=== PATIENT | female | born 1965 | race Caucasian/White ===

== ENCOUNTER 2017-08-13 13:13 | Emergency (ER) | payer OTHER, BC ==
[~2017-08-13] VITALS: Ht 172.7 cm; Wt 70.7 kg
[~2017-08-13 13:13] MED LIST: CALCIUM + VITA1 EACH PO; FISH OIL; HAIR, SKIN & N1 EAC1 PO; MASOPHEN325 MG PO; MOBIC7.5 MG PO; MULTIVITAMIN1 EAC2 PO; PROTONIX40 MG PO; TOPAMAX100 MG PO; XANAX
[2017-08-13 13:57] LABS: BASOPHIL (%) 0.3 % (0-1); EOSINOPHIL (%) 0.1 % (0-5); HEMATOCRIT 41.5 % (36.0-46.0); HEMOGLOBIN 14.3 G/DL (11.9-15.5); IMMATURE GRANULOCYTE (%) 0.1 % (0.0-0.7); LYMPHOCYTE (%) 19.7 % (15-42); LYMPHOCYTE COUNT 1.5 K/uL (1.0-2.8); MCHC 34.5 G/DL (30.0-36.0); MCV 95.8 FL (83-99); MONOCYTE (%) 6.3 % (3-12); MONOCYTE COUNT 0.5 K/uL (0-0.8); NEUTROPHIL (%) 73.5 % (45-76); NEUTROPHIL COUNT 5.4 K/uL (1.8-6.4); PLATELET COUNT 208 K/uL (156-360); RBC DIS.WIDTH-CV 12.6 % (11.8-14.6); RBC DIS.WIDTH-SD 44.9 % (39-53); RED BLOOD COUNT 4.33 M/uL (3.80-5.20); WHITE BLOOD COUNT 7.4 K/uL (4.1-10.2)
[2017-08-13 14:05] LABS: ALBUMIN 4.3 g/dL (3.2-4.8); CHLORIDE 112 mEq/L (99-109); POTASSIUM 3.7 mEq/L (3.7-5.4); SODIUM 139 mEq/L (136-147)
[2017-08-13 14:06] LABS: PTT 28.8 SEC (25-37)
[2017-08-13 14:07] LABS: GLUCOSE 88 mg/dL (70-99); TOTAL PROTEIN 7.3 g/dL (6.4-8.3)
[2017-08-13 14:09] LABS: TOTAL BILIRUBIN 0.6 mg/dL (0.0-1.0)
[2017-08-13 14:11] LABS: ALKALINE PHOSPHATASE 62 IU/L (3-129); CREATININE 0.9 mg/dL (0.6-1.3); GFR ESTIMATE (CALCULATED) > 59 mL/min/
[2017-08-13 14:12] LABS: UREA NITROGEN (BUN) 16 mg/dL (9-23)
[2017-08-13 14:13] LABS: AST (GOT) 18 IU/L (2-34)
[2017-08-13 14:14] LABS: ALT (GPT) 13 IU/L (3-49)
[2017-08-13 14:20] LABS: QUANTITATIVE HCG < 4.0 MIU/ML
[2017-08-13] MEDS ORDERED: MOTRIN600 MG PO (17:24)
[2017-08-13] MEDS ORDERED: PERCOCET 5/31 TABLET PO (17:24)
[2017-08-13 18:27] VITALS: BP 113/48
== END 2017-08-13 18:28 | disposition home or self-care (01) ==
LOC: EME 13:13
PROVIDERS: Emergency Medicine
DX: S70.01XA Contusion of right hip, initial encounter (principal); S29.012A Strain of muscle and tendon of back wall of thorax, initial encounter; M25.571 Pain in right ankle and joints of right foot; V49.40XA Driver injured in collision with unspecified motor vehicles in traffic accident, initial encounter; Y92.410 Unspecified street and highway as the place of occurrence of the external cause; R00.0 Tachycardia, unspecified
CPT/HCPCS: 71045; 72192; 73502; 73560; 73600; 80053; 84702; 85025; 85610; 85730; 99281; 99285; J1885; J2270